=== PATIENT | male | born 2000 | race African-American/Black ===

== ENCOUNTER 2023-04-04 23:53 | Emergency (ER) | payer OTHER, SELFPAY ==
[2023-04-05 00:05] VITALS: BP 150/99; BP 154/94; PULSE 82; PULSE 85; RESP 16; TEMP 37; O2SAT 99; BMI 25.1
--- NOTE | 2023-04-05 00:05 | ED.GENADULT ---
HPI - General Adult General Chief complaint: ETOH/Substance Use Stated complaint: drug use Time Seen by Provider: 04/05/23 00:01 Source: patient Mode of arrival: ambulatory Limitations: no limitations History of Present Illness HPI narrative: Patient apparently had some mushrooms around 19:00 since then been nauseated with hallucinations no head injury no fall no other substance abuse Related Data Allergies Allergy/AdvReac Type Severity Reaction Status Date / Time No Known Allergies Allergy Verified 04/05/23 00:26 Review of Systems Review of Systems: Yes all other systems are reviewed and are negative [facility] Social History Social History Advance Directives: No Advance Directives Information Provided: No Physical Exam ED Vital Signs: Vital Signs - 24 hr 04/05/23 00:05 Temperature 98.6 F Pulse Rate 85 Respiratory Rate 16 Blood Pressure 150/99 H Pulse Oximetry 99 Oxygen Delivery Method Room Air BMI result Body Mass Index 25.1 Appearance: Alert. Oriented X3. No acute distress. Feel nauseated Eyes: PERRLA, No Nystagmus ENT: Pharynx normal. Oral Mucosa moist Neck: Normal inspection. Neck supple. CVS: Normal heart rate and rhythm. Pulses normal. Respiratory: No respiratory distress. Equal air entry bilateral, no wheezing/rales/rhonchi Abdomen: Soft and nontender. Bowel sounds are present, Skin: Skin warm and dry. Normal skin color. Normal skin turgor. Extremities: No lower extremity edema. No calf tenderness Neuro: Oriented X 3. No hallucinations at this time Medications Administered Discontinued Medications Generic Name Dose Route Start Last Admin Trade Name Davidsonq PRN Reason Stop Dose Admin Ondansetron HCl 4 mg 04/05/23 00:26 04/05/23 00:43 Ondansetron Odt 4 Mg Tab.Rapdis TRANSLINGU 04/05/23 00:27 4 mg ONCE ONE Administration Medical Decision Making Medical Decision Making [facility] Narrative: Patient with mild toxicity of mushrooms within 6 hours of ingestion with nausea vomited in the ER feeling much better at this time give Zofran symptomatic treatment advised to rest at home did not ingest mushrooms at can lead to toxicity Differential Diagnosis Differential Diagnoses: The differential diagnosis associated with the presentation includes Discharge Plan 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
[2023-04-05] MEDS: Ondansetron ODT 4 MG TAB.RAPDIS TRANSLINGU (00:43)
--- NOTE | 2023-04-05 01:14 | PC.NURSE ---
pt girlfriend at bedside. pt ambulatory at discharge. pt calm adn cooperative. pt provided with discharge packet pt verbalized understanding of discharge plan. pt girlfriend father provided pt and girlfriend ride home.
== END 2023-04-05 01:15 | disposition home or self-care (01) ==
PROVIDERS: Emergency Provider Internal Medicine
DX: F16.951 Hallucinogen use, unspecified with hallucinogen-induced psychotic disorder with hallucinations (principal); R11.0 Nausea
CPT/HCPCS: 99283; 99284

== ENCOUNTER 2023-06-25 14:41 | Emergency (ER) | payer OTHER, SELFPAY ==
[2023-06-25 14:47] VITALS: BP 119/72; BP 120/75; PULSE 71; PULSE 76; RESP 16; TEMP 36.4; O2SAT 94; O2SAT 99; BMI 23.0
--- NOTE | 2023-06-25 14:58 | ED_ITS ---
HPI - Dizziness General Chief Complaint: Dizziness Stated Complaint: WEAK,JAVIER,LOW BS 78 PER EMS Related Data Allergies Allergy/AdvReac Type Severity Reaction Status Date / Time No Known Allergies Allergy Verified 06/25/23 14:51 [facility] Social History Social History Substance Use Type: Hallucinogens and Marijuana Physical Exam 2 Vital Signs: Vital Signs: Last Vital Signs Temp 97.6 F 06/25/23 14:47 Pulse 76 06/25/23 14:47 Resp 16 06/25/23 14:47 BP 119/72 06/25/23 14:47 Pulse Ox 94 06/25/23 14:47 O2 Del Method Room Air 06/25/23 14:47 BMI result Body Mass Index 23.0 Course Course Course Narrative: This is a rapid medical exam completed by Angeline PAULN: Additional HPI, ROS, PE not included below will be deferred to primary provider. Sudden onset weakness, dizziness, and diaphoresis while at school. Given a cookie by EMS with good relief of symptoms. Feeling fatigued here Medical Decision Making Lab Data 06/25/23 15:25 06/25/23 15:25 Labs: Lab Results 06/25/23 Range/Units 15:25 WBC 4.9 (4.8-10.8) X10*3/uL RBC 4.42 L (4.60-5.80) X10*6/uL Hgb 14.1 (14.0-18.0) g/dl Hct 40.6 L (42.0-52.0) % MCV 91.9 (80.0-98.0) fL MCH 31.9 (27.0-33.0) pg MCHC 34.7 (31.0-36.0) g/dl RDW 12.9 (11.0-16.0) % Plt Count 209 (160-400) X10*3/uL MPV 10.0 (9.4-12.4) fL Immature Gran % (Auto) 0.2 (0.0-0.4) % Neut % (Auto) 44.4 L (45-73) % Lymph % (Auto) 46.6 H (20-40) % Hitchcock % (Auto) 7.8 (2-11) % Eos % (Auto) 0.8 (0-4) % Baso % (Auto) 0.2 (0-2) % Lymph # (Auto) 2.3 (1.2-4.9) X10*3/uL Hitchcock # (Auto) 0.4 (0.1-1.2) X10*3/uL Eos # (Auto) 0.0 (0.0-0.4) X10*3/uL Baso # (Auto) 0.0 (0.0-0.2) X10*3/uL Abs Immat Gran (auto) 0.01 (0.00-0.03) X10*3/uL Absolute Neuts (auto) 2.2 (2.0-8.3) x10*3/uL Absolute Nucleated RBC 0.000 (0.0-0.012) X10*3/uL Nucleated RBC % (auto) 0.0 (0.0-0.2) /100WBC Sodium 139 (135-145) mmol/L Potassium 3.0 L (3.3-5.1) mmol/L Chloride 104 (96-108) mmol/L Carbon Dioxide 25 (22-29) mmol/L Anion Gap 13 (12-20) BUN 12 (9-16) mg/dL Creatinine 0.92 (0.5-1.4) mg/dL Estim Creat Clear Calc 134.4 Estimated GFR > 60 Random Glucose 77 (60-115) mg/dL Calcium 9.5 (8.4-10.2) mg/dL Total Bilirubin 0.8 (0.0-1.0) mg/dL AST 24 (5-37) U/L ALT 12 (0-40) U/L Alkaline Phosphatase 81 (39-117) U/L Total Protein 7.1 (6.5-8.0) g/dL Albumin 4.3 (3.5-5.0) g/dL Discharge Plan Discharge Clinical Impression: Headache, Left before treatment completed Patient Disposition: Left W/O Completing Treatment
--- NOTE | 2023-06-25 14:59 | ECG_ITS ---
Test Reason : dizzness Blood Pressure : / mmHG Vent. Rate : 071 BPM Atrial Rate : 071 BPM P-R Int : 168 ms QRS Dur : 112 ms QT Int : 384 ms P-R-T Axes : 063 008 033 degrees QTc Int : 417 ms Normal sinus rhythm Nonspecific T wave abnormality Borderline ECG No previous ECGs available Referred By: Mary Calzada Electronically Signed By:BRENT LITTLE
[2023-06-25 15:32] LABS: MANUAL DIFF FLAG NO
[2023-06-25 15:38] LABS: Basophils Percent Auto 0.2 % (0-2); Eosinophils Percent Auto 0.8 % (0-4); Hematocrit 40.6 % (42.0-52.0); Hemoglobin 14.1 g/dl (14.0-18.0); Imm Gran Abs Auto 0.01 X10*3/uL (0.00-0.03); Imm Gran Pct Auto 0.2 % (0.0-0.4); Lymphocytes Absolute Auto 2.3 X10*3/uL (1.2-4.9); Lymphocytes Percent Auto 46.6 % (20-40); Mean Corpuscular HGB Conc 34.7 g/dl (31.0-36.0); Mean Corpuscular Hemoglobin 31.9 pg (27.0-33.0); Mean Corpuscular Volume 91.9 fL (80.0-98.0); Monocytes Absolute Auto 0.4 X10*3/uL (0.1-1.2); Monocytes Percent Auto 7.8 % (2-11); Neutrophils Absolute Auto 2.2 x10*3/uL (2.0-8.3); Neutrophils Percent Auto 44.4 % (45-73); Platelet Count 209 X10*3/uL (160-400); Red Blood Count 4.42 X10*6/uL (4.60-5.80); Red Cell Distribution Width 12.9 % (11.0-16.0); White Blood Count 4.9 X10*3/uL (4.8-10.8)
[2023-06-25 15:50] LABS: Alanine Aminotransferase 12 U/L (0-40); Albumin Level 4.3 g/dL (3.5-5.0); Alkaline Phosphatase 81 U/L (39-117); Anion Gap 13 (12-20); Aspartate Amino Transferase 24 U/L (5-37); Bilirubin Total 0.8 mg/dL (0.0-1.0); Blood Urea Nitrogen 12 mg/dL (9-16); Calcium 9.5 mg/dL (8.4-10.2); Carbon Dioxide 25 mmol/L (22-29); Chloride 104 mmol/L (96-108); Creatinine Clr Calc Pharmacy 134.4; Estimated Glomerular Filt Rate > 60; Glucose Random 77 mg/dL (60-115); Sodium 139 mmol/L (135-145); Total Protein 7.1 g/dL (6.5-8.0)
--- OUTSIDE RECORDS SUMMARY | 2023-06-25 20:56 | XMS_ITS | Continuity of Care Document ---
Author Organization [facility] ter Address [address] [place] [address]- Care Team Providers Care Template Checker Name Role Phone Berhane GOODMAN, Munir Malik Primary Care Physician [place] [facility] [place] - 06/03/[address] [address]- Encounter Diagnosis Influenza A(Final) - 06/03/21 Discharge Disposition: A-D/C Home Attending Physician: Isaías Self MD Admitting Physician: Isaías Self MD Referring Physician: Not on Staff, Referring MD Allergies, Adverse Reactions, Alerts No Known Allergies Medications ibuprofen 600 mg oral tablet 600 mg, 1, tablet, By Mouth, Every 8 hours, # 30 tablet, Refills 0, Tot. Refills 0, Maintenance, 06/03/21 15:25:00 EDT, Route to Pharmacy Electronically, [facility]/pharmacy #[id number], Partial fill upon patientrequest if the prescription is for a schedule II op... Start Date: 06/03/21 Status: Ordered Tamiflu 75 mg oral capsule 1 capsule = 75 mg, By Mouth, 2 times a day, for 5 days, # 10 capsule, 0 Refills, Acute 06/08/21 15:46:00 EDT, 06/03/21 15:46:00 EDT, Capsule, [facility]acy [id number], Partial fill upon patient request if the prescription is for a schedule II opioid drug.,... Start Date: 06/03/21 Stop Date: 06/08/21 Status: Ordered Tylenol Extra Strength 500 mg oral tablet 2 tablet = 1,000 mg, By Mouth, 3 times a day, PRN for fever, # 60 tablet, 0 Refills, Maintenance, 06/03/21 15:25:00 EDT, Tablet, [id number], Partial fill upon patient request, 180, cm, 06/03/21 12:42:00 EDT, Height Start Date: 06/03/21 Stop Date: 06/13/21 Status: Ordered Vital Signs Most recent to oldest [Reference Range]: 1 2 3 Height 180 cm (06/03/21 12:42 PM) 180 cm (06/03/21 11:18 AM) Weight 77.5 kg (06/03/21 12:42 PM) 77.5 kg (06/03/21 11:18 AM) Oxygen Saturation [94-100 %] 100 % (06/03/21 3:26 PM) 100 % (06/03/21 1:33 PM) 100 % (06/03/21 11:18 AM) Pulse Rate [55-90 bpm] 101 bpm *H* (06/03/21 3:26 PM) 102 bpm *H* (06/03/21 1:33 PM) 95 bpm *H* (06/03/21 11:18 AM) Body Mass Index [18.5-24.99] 23.92 (06/03/21 11:18 AM) Blood Pressure [90-138/55-84 mm Hg] 142/72mm Hg *H* (06/03/21 3:26 PM) 146/86mm Hg *H* (06/03/21 1:33 PM) 155/62mm Hg *H* (06/03/21 11:18 AM) Respiratory Rate [16-30 br/min] 16 br/min (06/03/21 3:26 PM) 18 br/min (06/03/21 11:18 AM) Temperature [96.8-100.4 DegF] 99.5 DegF (06/03/21 3:26 PM) 99.1 DegF (06/03/21 1:33 PM) 99.4 DegF (06/03/21 11:18 AM) Mode of Delivery (Oxygen) Room air (06/03/21 3:26 PM) Room air (06/03/21 1:33 PM) Room air (06/03/21 11:18 AM) Blood pressure sites Arm, right (06/03/21 3:26 PM) Arm, right (06/03/21 1:33 PM) Arm, right (06/03/21 11:18 AM) Temperature Route Oral (06/03/21 3:26 PM) Oral (06/03/21 1:33 PM) Oral (06/03/21 11:18 AM) Weight Obtained Via Patient/family state d (06/03/21 11:18 AM)
--- OUTSIDE RECORDS SUMMARY | 2023-06-25 20:56 | XMS_ITS | Continuity of Care Document ---
Author Organization [facility] Address [address] [place] [address]- Care Team Providers Care Casing Splitter Name Role Phone Munir Last MD Primary Care Physician [phone] [place] [facility] [place] 12/06/22 - 01/05/23 [facility] [address] [place] [address]- Attending Physician: Dalila Baugh Admitting Physician: AdmtrDalila Referring Physician: AdmtrDalila Allergies, Adverse Reactions, Alerts No Known Allergies Medications ibuprofen 600 mg oral tablet 600 mg, 1, tablet, By Mouth, Every 8 hours, # 30 tablet, Refills 0, Tot. Refills 0, Maintenance, 06/03/21 15:25:00 EDT, Route to Pharmacy Electronically, [facility]/pharmacy #[id number], Partial fill upon patientrequest if the prescription is for a schedule II op... Start Date: 06/03/21 Status: Ordered Tylenol Extra Strength 500 mg oral tablet 2 tablet = 1,000 mg, By Mouth, 3 times a day, PRN for fever, # 60 tablet, 0 Refills, Maintenance, 06/03/21 15:25:00 EDT, Tablet, [facility]/pharmacy #[id number], Partial fill upon patient request, 180, cm, 06/03/21 12:42:00 EDT, Height Start Date: 06/03/21 Stop Date: 06/13/21 Status: Ordered Patient Care team information Care Team Personnel Name: Munir Last MD Position: S Physician - Pediatrics Member Role: PCP Address: Address: [address] [place] [address] [place] [address]- Care Team Related Persons Name: BRADFORD LANDRY Address: home [address] [place] [address] Name: MANAS CORRALES Address: home [address] [place] [address] Name: CAROLE PEREZ Address: home [address] [place] [address]
--- OUTSIDE RECORDS SUMMARY | 2023-06-25 20:56 | XMS_ITS | Continuity of Care Document ---
Author Organization [facility] Address [address] [place] [address]- Care Team Providers Care Vending Attendant Name Role Phone Munir Last MD Primary Care Physician En[place] [facility] [place] Date(s): 04/22/22 - 05/22/22 [facility] [address] [place] [address]- Attending Physician: Dalila Baugh Admitting Physician: AdmtrDalila Referring Physician: Admtr ArBenjie Allergies, Adverse Reactions, Alerts No Known Allergies Medications ibuprofen 600 mg oral tablet 600 mg, 1, tablet, By Mouth, Every 8 hours, # 30 tablet, Refills 0, Tot. Refills 0, Maintenance, 06/03/21 15:25:00 EDT, Route to Pharmacy Electronically, [facility]/pharmacy #[id number], Partial fill upon patientrequest if the prescription is for a schedule II op... Start Date: 06/03/21 Status: Ordered Tylenol Extra Strength 500 mg oral tablet 2 tablet = 1,000 mg, By Mouth, 3 times a day, PRN for fever, # 60 tablet, 0 Refills, Maintenance, 06/03/21 15:25:00 EDT, Tablet, [facility]/pharmacy #[id number], Partial fill upon patient request, 180, cm, 06/03/21 12:42:00 EDT, Height Start Date: 06/03/21 Stop Date: 06/13/21 Status: Ordered Patient Care team information Care Team Personnel Name: Munir Last MD Position: S General Pediatrics MD Member Role: PCP Address: Address: [address] [place] [address] [place] [address]- Care Team Related Persons Name: BRADFORD LANDRY Address: home [address] [place] [address] Name: MANAS CORRALES Address: home [address] [place] [address] Name: CAROLE PEREZ Address: home [address] [place] [address]
--- OUTSIDE RECORDS SUMMARY | 2023-06-25 20:56 | XMS_ITS | Continuity of Care Document ---
Author Organization [facility] Address [address] [place] [address]- Care Team Providers Care Ditto Machine Operator Name Role Phone Berhane GOODMAN, Munir Malik Primary Care Physician [phone] Encounter [facility] [place] Date(s): 07/04/21 - 08/03/21 [facility] [address] [place], [place] [address] Attending Physician: Dalila Baugh Admitting Physician: AdmtrDalila Referring Physician: Admtr ArBenjie Allergies, Adverse Reactions, Alerts No Known Allergies Medications ibuprofen 600 mg oral tablet 600 mg, 1, tablet, By Mouth, Every 8 hours, # 30 tablet, Refills 0, Tot. Refills 0, Maintenance, 06/03/21 15:25:00 EDT, Route to Pharmacy Electronically, [facility]/pharmacy #[id number], Partial fill upon patientrequest if the prescription is for a schedule II op... Start Date: 06/03/21 Status: Ordered Tylenol Extra Strength 500 mg oral tablet 2 tablet = 1,000 mg, By Mouth, 3 times a day, PRN for fever, # 60 tablet, 0 Refills, Maintenance, 06/03/21 15:25:00 EDT, Tablet, [facility]/pharmacy #[id number], Partial fill upon patient request, 180, cm, 06/03/21 12:42:00 EDT, Height Start Date: 06/03/21 Stop Date: 06/13/21 Status: Ordered
--- OUTSIDE RECORDS SUMMARY | 2023-06-25 20:56 | XMS_ITS | Continuity of Care Document ---
Author Organization [facility] Address [address] [place] [address]- Care Team Providers Care Maintenance Of Way Clerk Name Role Phone Berhane GOODMAN, Munir Malik Primary Care Physician [place] [facility] [place] [id number] Date(s): 07/04/21 - 07/11/21 [facility] [address] [place], [place] [address] Attending Physician: Bennie Cardona DO Referring Physician: Artis Andrea MD Allergies, Adverse Reactions, Alerts No Known [...] Most recent to oldest [Reference Range]: 1 Height 180 cm (07/04/21 12:09 PM) Oxygen Saturation [94-100 %] 100 % (07/04/21 12:09 PM) Pulse Rate [55-90 bpm] 65 bpm (07/04/21 12:09 PM) Blood Pressure [90-138/55-84 mm Hg] 127/ 75mm Hg (07/04/21 12:09 PM) Temperature [96.8-100.4 DegF] 98.0 DegF (07/04/21 12:09 PM) Mode of Delivery (Oxygen) Room air (07/04/21 12:09 PM) Blood pressure sites Arm, right (07/04/21 12:09 PM) Temperature Route Temporal (07/04/21 12:09 PM)
--- OUTSIDE RECORDS SUMMARY | 2023-06-25 20:56 | XMS_ITS | Continuity of Care Document ---
Author Organization [facility] Address [address] [place] [address]- Care Team Providers Care Plumber Maintenance Name Role Phone Berhane GOODMAN, Munir Malik Primary Care Physician [phone] [id number] Date(s): 12/06/22 - 12/13/22 [facility] [address] [place], [place] [address] Attending Physician: Cady Garcia MD Referring Physician: Not on Staff, Referring MD Allergies, Adverse Reactions, Alerts No Known Allergies Medications ibuprofen 600 mg oral tablet 600 mg, 1, tablet, By Mouth, Every 8 hours, # 30 tablet, Refills 0, Tot. Refills 0, Maintenance, 06/03/21 15:25:00 EDT, Route to Pharmacy Electronically, [facility]/pharmacy #[id number], Partial fill upon patientrequest if the prescription is for a schedule II op... Start Date: 06/03/21 Status: Ordered Tylenol Extra Strength 500 mg oral tablet 2 tablet = 1,000 mg, By Mouth, 3 times a day, PRN for fever, # 60 tablet, 0 Refills, Maintenance, 06/03/21 15:25:00 EDT, Tablet, [facility]/pharmacy #[id number], Partial fill upon patient request, 180, cm, 06/03/21 12:42:00 EDT, Height Start Date: 06/03/21 Stop Date: 06/13/21 Status: Ordered Vital Signs Most recent to oldest [Reference Range]: 1 Height 180 cm (12/06/22 2:58 PM) Oxygen Saturation [94-100 %] 100 % (12/06/22 2:58 PM) Pulse Rate [55-90 bpm] 65 bpm (12/06/22 2:58 PM) Blood Pressure [90-138/55-84 mm Hg] 130/ 80mm Hg (10/14/23 2:58 PM) Temperature [96.8-100.4 DegF] 97.2 DegF (12/06/22 2:58 PM) Mode of Delivery (Oxygen) Room air (12/06/22 2:58 PM) Blood pressure sites Arm, right (12/06/22 2:58 PM) Temperature Route Temporal (12/06/22 2:58 PM) Note * Alvaro Ozuna: PERFORM, SIGN, VERIFY Event Display: Patient Education/Instruction Authored Date: [id number] [facility] *[facility] Clinical Summary Name MANAS LINDQUIST Age 22 Years 2000 PCP Berhane GOODMAN, Munir Malik PCP Visit Date 12/06/2022 13:05:00 Additional Instructions: Scheduled Appointments?? Future Appointments ?No Future Appointments Scheduled Follow-Up Instructions ?? Diagnosis Medications: Please continue your medications until treatment is completed or stopped by your provider. Discuss any questions related to medications with your provider. Medications to Continue with No Changes These medications were not printed or sent to your pharmacy Acetaminophen (Tylenol Extra Strength 500 mg oral tablet) 2 tab(s) Oral 3 times a day as needed forfever for 10 Days. Refills: 0. Next Dose: Ibuprofen (ibuprofen 600 mg oral tablet) 1 tab(s) Oral every 8 hours. Refills: 0. Next Dose: Allergy Info:?? NKA Medications Given This Visit Future Orders ?No future orders Vital Signs Height Weight BMI Blood Pressure / Temperature Pulse Rate Respiratory Rate 02 Sat Mode of Delivery / You can now view a summary of your hospital visit from the comfort of your home through a free online portal called [employer]. [employer] is a website that allows you to securely view your medical information including discharge summary, medications and follow-up visits. ??You can alsosend a secure electronic message to your doctor???s office to request appointments, renew medications or just ask a question. You can enroll at [email or web address] or register during your next office visit. Disclaimer:?? The information provided is of a general nature and is intended to be used in conjunction with the recommendations and advice of your health care practitioner. ??Every effort has been made to ensure that the information provided is accurate and complete at the time it is provided to you however, as your needs change, or, as new ??information becomes available, different or additional instructions may be required. If you have questions, please consult with your primary care provider or pharmacist, as appropriate. ??This information is not intended to serve as substitution for assessment and evaluation by a qualified health care provider. If you do not have a primary care provider, you may find a [facility] provider by calling [facility] [employer] Link at [phone]. [facility], in keeping with [facility] guidance, no longer requires face masks for staff, patientsor visitors in most situations. Similar to time spent indoors at other locations, there is the chance that you were exposed to respiratory viruses during your time with us (such as flu or COVID-19).? If you develop symptoms concerning for a viral respiratory infection, please seek testing (and treatment if indicated) from your medical provider or home test kit. For information about the plan of care including goals and instructions for your diagnosis, please see the patient education orders section of this document. Patient Education Materials?? The content of this educational material or handout may have been modified, supplemented, or adapted from its original content and format to support your individualized medical care. Patient Care team information Care Team Personnel Name: Munir Last MD Position: [facility] Physician - Pediatrics Member Role: PCP Address: Address: [address] [place] [address] [place] [address]- [place] Care Team Related Persons Name: BRADFORD LANDRY Address: home [address] [place] [address] Name: MANAS CORRALES Address: home [address] [place] [address] Name: CAROLE PEREZ Address: home [address] [place] [address]
== END 2023-06-25 20:56 | disposition left against medical advice (07) ==
LOC: HO.ED 20:55
PROVIDERS: Nurse Practitioner Family; Emergency Provider Emergency Medicine
DX: R42 Dizziness and giddiness (principal); R51.9 Headache, unspecified; R53.1 Weakness; R94.31 Abnormal electrocardiogram [ECG] [EKG]; Z79.899 Other long term (current) drug therapy
CPT/HCPCS: 36415; 80053; 85025; 93005; 99283

== ENCOUNTER → 2023-06-25 14:59 | Outpatient (BNV) | payer OTHER, SELFPAY | PROVIDERS: Emergency Provider Emergency Medicine; Visit Provider Internal Medicine | DX: R42 Dizziness and giddiness (principal) | CPT/HCPCS: 93010 ==